=== PATIENT | female | born 1950 | race Caucasian/White ===

== ENCOUNTER 2022-05-05 18:36 | Emergency (ER) | payer MEDICARE ==
[2022-05-05] MEDS ORDERED: Sodium Chloride 0.9% 1,000 ML IV ONE (19:32)
[2022-05-05] MEDS ORDERED: Ondansetron 4 MG/2 ML SDV IVPUSH ONE (19:36)
[2022-05-05 20:07] LABS: BLOOD UREA NITROGEN,BUN 16 mg/dL (7.0-18.0); CARBON DIOXIDE,CO2 25.5 mmol/L (21.0-32.0); CHLORIDE,CL 99 mmol/L (98-107); GLUCOSE RANDOM 187 mg/dL (74-106); LIPASE 80 U/L (73-393); POTASSIUM,K 3.6 mmol/L (3.5-5.1); SODIUM,NA 136 mmol/L (136-145)
[2022-05-05 20:12] LABS: ESTIMATED GFR 54 mL/min (>60)
[2022-05-05] MEDS ORDERED: Acetaminophen 500 MG Tab PO ONE (20:56)
[2022-05-05] MEDS ORDERED: Ketorolac 30 MG/ML SDV IVPUSH ONE (21:50)
[2022-05-05] MEDS ORDERED: diphenhydrAMINE 50 MG/ML SDV IVPUSH ONE (21:50)
== END 2022-05-05 22:15 | disposition home or self-care (01) ==
LOC: MW.ED 18:36
DX: U07.1 COVID-19 (principal); J32.9 Chronic sinusitis, unspecified
CPT/HCPCS: 36415; 70450; 71045; 80053; 81001; 83690; 83735; 84484; 85025; 93005; 96361; 96374; 96375; 99285; A9270; J1200; J1885; J2405; J7030; U0002; 93010; 99284